=== PATIENT | female | born 1965 | race Caucasian/White ===

== ENCOUNTER 2017-04-13 11:24 | Emergency (ER) | payer OTHER ==
[~2017-04-13] VITALS: Ht 157.5 cm; Wt 81.6 kg
[~2017-04-13 11:24] MED LIST: AMOXICILLIN500 M1 PO; FLEXERIL10 MG PO; LIBRIUM25 MG PO; LOPRESSOR25 MG PO; MACROBID100 MG PO; MOTRIN600 MG PO; PERCOCET 5/31 TABLET PO; PHENERGAN12.5 M1 PO; PRILOSEC20 MG PO; Protonix PO; THIAMINE HCL100 MG PO; ZESTRIL,PRINIV2.5 MG PO; ZESTRIL20 MG PO; oxyCODONE PO
[2017-04-13 12:15] LABS: MCH 30.2 PG (29.0-34.0); MCHC 32.4 G/DL (30.0-36.0); MCV 93.4 FL (83-99); MEAN PLAT.VOLUME 13.6 uM^3 (9.5-12.4); PLATELET COUNT 83 K/uL (156-360); RBC DIS.WIDTH-CV 18.4 % (11.8-14.6); RED BLOOD COUNT 4.07 M/uL (3.80-5.20); WHITE BLOOD COUNT 4.9 K/uL (4.1-10.2)
[2017-04-13 12:26] LABS: CHLORIDE 112 mEq/L (99-109); POTASSIUM 3.5 mEq/L (3.7-5.4); SODIUM 148 mEq/L (136-147)
[2017-04-13 12:28] LABS: GLUCOSE 144 mg/dL (70-99)
[2017-04-13 12:29] LABS: ANION GAP 16 MEQ/L (2-14)
[2017-04-13 12:31] LABS: SERUM ETHYL ALCOHOL 252 mg/dL
[2017-04-13 12:32] LABS: GFR ESTIMATE (CALCULATED) > 59 mL/min/
[2017-04-13 12:33] LABS: UREA NITROGEN (BUN) 12 mg/dL (9-23)
[2017-04-13 20:21] LABS: AMPHETAMINE NEGATIVE (500 ng/mL); BARBITURATES NEGATIVE (200 ng/mL); BENZODIAZEPINES PRESUMPTIVE POSITIVE (150 ng/mL); COCAINE PRESUMPTIVE POSITIVE (150 ng/mL); INTERNAL CONTROLS VALID? YES; METHADONE NEGATIVE (200 ng/mL); METHAMPHETAMINE PRESUMPTIVE POSITIVE (500 ng/mL); OPIATES (MORPHINE) PRESUMPTIVE POSITIVE (100 ng/mL); OXYCODONE NEGATIVE (100 ng/mL); PHENCYCLIDINE NEGATIVE (25 ng/mL); PROPOXYPHENE NEGATIVE (300 ng/mL); THC CANNABINOIDS PRESUMPTIVE POSITIVE (50 ng/mL); TRICYCLIC ANTIDEPRESSANTS NEGATIVE (300 ng/mL)
[2017-04-13 20:22] LABS: ADD MEDTOX COMMENT Y
[2017-04-13 20:50] LABS: BENZODIAZEPINES, URINE SCREEN POSITIVE (200 ng/mL); OPIATES QUANTITATIVE VALUE 0 NG/ML
[2017-04-13 22:51] VITALS: BP 121/72
== END 2017-04-13 22:52 | disposition home or self-care (01) ==
LOC: EME 11:24
DX: F10.129 Alcohol abuse with intoxication, unspecified (principal); F19.10 Other psychoactive substance abuse, uncomplicated; I10 Essential (primary) hypertension; F17.200 Nicotine dependence, unspecified, uncomplicated
CPT/HCPCS: 80048; 84999; 85027; 99281; 99285; G0480